=== PATIENT | female | born 1980 | race African-American/Black ===

== ENCOUNTER 2018-08-13 18:36 | Emergency (ER) | payer BC, OTHER ==
[~2018-08-13] VITALS: Ht 165.1 cm; Wt 63.5 kg
[~2018-08-13 18:36] MED LIST: FLAGYL500 MG ORAL; GYNE-LOTRIMIN45 GM VG; IBUPROFEN600 MG ORAL; LEVOTHYROXINE88 MCG ORAL; NAPROXEN375 MG PO; NORCO 5-325 TA1 EACH ORAL; TRAMADOL HCL50 MG ORAL; UNOBMED; VIBRAMYCIN100 MG ORAL
[2018-08-13 19:21] VITALS: BP 119/79
--- NOTE | 2018-08-13 19:21 | NUR ---
ED Nurse Note: Patient comes in with complaints of right breast pain, 8/10 on pain scale for 1 day.
--- NOTE | 2018-08-13 19:53 | Emergency Room Report ---
History of Present Illness General Chief Complaint: Pain Source: Patient Present Illness HPI 38-year-old female presents to the emergency department complaining of 8/10 in severity right breast pain that is localized and progressive x 1 day. Pt. also c /o 5/10 in severity to right rhomboid area pain/soreness x 2 weeks. no LAD, no constitutional symptoms. no family hx of BRCA. NO fevers, chills, nipple d/c, or dimpling of the skin over the breast. pt. reports swelling and palpable swelling inside of the breast. denies trauma or fall. denies appreciable strenuous activities . Allergies: Coded Allergies: No Known Allergies (Unverified , 07/07/12) Patient History Past Medical History: see triage record Past Surgical History: none Pertinent Family History: none Last Menstrual Period: 07/2018 Reviewed Nursing Documentation: PMH: Agreed; PSxH: Agreed Nursing Documentation-PMH Past Medical History: No History, Except For Review of Systems All Other Systems: negative except mentioned in HPI Physical Exam Vital Signs Date Time Temp Pulse Resp B/P (MAP) Pulse Ox O2 Delivery O2 Flow Rate FiO2 08/13/18 18:48 98.2 56 19 119/79 99 Room Air Sp02 EP Interpretation: reviewed, normal General Appearance: no apparent distress, alert, GCS 15, non-toxic Head: normocephalic, atraumatic Eyes: bilateral eye normal inspection, bilateral eye PERRL ENT: hearing grossly normal, normal voice Neck: full range of motion Respiratory: lungs clear, normal breath sounds, speaking full sentences, other - right breast tissue, mild erythema and swelling. Cardiovascular #1: regular rate, rhythm Rectal: deferred Genitourinary: normal inspection Musculoskeletal: back normal, gait/station normal, normal range of motion, tender - TTP to the right rhomboid, some swelling also noted, Neurologic: alert, oriented x3, responsive, motor strength/tone normal, sensory intact, normal gait, speech normal, grossly normal Psychiatric: judgement/insight normal Skin: no rash, warm/dry, well hydrated, other - right breast tissue, mild erythema and swelling. Lymphatic: no adenopathy Medical Decision Making PA Attestation Dr. wilkerson is my supervising Physician whom patient management has been discussed with. Diagnostic Impression: Primary Impression: Mastitis of right breast unrelated to of Additional Impression: Muscle strain ER Course 38-year-old female presents to the emergency department complaining of 8/10 in severity right breast pain that is localized and progressive x 1 day. Pt. also c /o 5/10 in severity to right rhomboid area pain/soreness x 2 weeks. no LAD, no constitutional symptoms. no family hx of BRCA. NO fevers, chills, nipple d/c, or dimpling of the skin over the breast. pt. reports swelling and palpable swelling inside of the breast. denies trauma or fall. denies appreciable strenuous activities . Ddx considered but are not limited to cellulitis, abscess, mastitis, shingles, malignancy just to name a few. Vital signs: are WNL, pt. is afebrile H&PE are most consistent with possible mastitis vs. cellulitis of the right breast tissue, mild erythema and swelling. TTP to the right rhomboid, some swelling also noted, ORDERS: none required at this time, the diagnosis is clinical ED INTERVENTIONS: None required at this time. DISCHARGE: At this time pt. is stable for d/c to home. Will provide printed patient care instructions, and any necessary prescriptions. Care plan and follow up instructions have been discussed with the patient prior to discharge. Last Vital Signs Date Time Temp Pulse Resp B/P (MAP) Pulse Ox O2 Delivery O2 Flow Rate FiO2 08/13/18 19:21 98.2 78 19 119/79 99 Room Air Status: improved Disposition: HOME, SELF-CARE Condition: Stable Scripts Methocarbamol* (ROBAXIN-750*) 750 Mg Tablet 750 MG PO QID for 7 Days, #28 TAB 0 Refills Prov: Prudence Meneses 08/13/18 Ibuprofen* (MOTRIN*) 600 Mg Tablet 600 MG ORAL THREE TIMES A DAY, #30 TAB 0 Refills Prov: Prudence Meneses 08/13/18 Dicloxacillin Sodium (Dicloxacillin Sodium) 500 Mg Capsule 500 MG ORAL Q12HR for 7 Days, #14 CAP 0 Refills Prov: Prudence eMneses 08/13/18 Patient Instructions: Breast Tenderness, Muscle Strain, [id number] Additional Instructions: Take medications as directed. Follow up with a INTERNATIONAL ACCOUNT MANAGER within 3 days, even if your symptoms have resolved. * * Return sooner to ED if new symptoms occur, or current symptoms become worse. - Please note that this Emergency Department Report was dictated using [employer] crewman technology software, occasionally this can lead to erroneous entry secondary to interpretation by the dictation equipment. Prudence Meneses Aug 13, 2018 19:53
[2018-08-13] MEDS ORDERED: DICLOXACILLIN500 MG ORAL (19:55)
[2018-08-13] MEDS ORDERED: IBUPROFEN600 MG ORAL (19:55)
[2018-08-13] MEDS ORDERED: ROBAXIN-750750 MG PO (19:55)
[2018-08-13 20:16] VITALS: BP 119/79
--- NOTE | 2018-08-13 20:16 | NUR ---
ED Nurse Note: Patient cleared for discharge, no s/s of acute distress. Patient ambulatory with steady gait, ID band removed. Patient verbalized understanding of discharge instructions.
== END 2018-08-13 20:16 | disposition home or self-care (01) ==
LOC: EMR 19:25
DX: N61.0 Mastitis without abscess (principal); S29.012A Strain of muscle and tendon of back wall of thorax, initial encounter; X58.XXXA Exposure to other specified factors, initial encounter; Y92.9 Unspecified place or not applicable
CPT/HCPCS: 99283

== ENCOUNTER 2020-07-18 08:39 | Emergency (ER) | payer BC, OTHER ==
[~2020-07-18] VITALS: Ht 165.1 cm; Wt 66.2 kg
[~2020-07-18 08:39] MED LIST changes: +DICLOXACILLIN500 MG ORAL; +ROBAXIN-750750 MG PO
--- NOTE | 2020-07-18 09:28 | Emergency Room Report ---
History of Present Illness General Chief Complaint: Abdominal Pain Source: Patient Present Illness HPI Patient has a history of appendectomy and prior hernia repair. She presents to the emergency department today complaining of acute onset of suprapubic and right lower quadrant discomfort radiating into her kidney area for the last 3 days. She complains of dysuria urinary frequency. She denies an y fever nausea vomiting diarrhea or chills. Denies any chest pain shortness of breath. Denies any vaginal discharge. States that she has a history of ovarian cysts but was told that it was very small and this was some time ago. No other modifying factors. No other associated signs and symptoms. No other complaints were noted. Allergies: Coded Allergies: No Known Allergies (Unverified , 07/07/12) COVID-19 Screening Contact w/high risk pt: No Recent Travel to affected area: No Experienced COVID-19 symptoms?: No COVID-19 Testing performed STONE GLUER: Yes COVID-19 Screening: Negative COVID-19 COVID-19 Testing Source: care Patient History Past Medical History: none Past Surgical History: appy, , other - Hernia repair Pertinent Family History: none Social History: Denies: smoking, alcohol use, drug use Last Menstrual Period: 07/06/20. Now: No Reviewed Nursing Documentation: PMH: Agreed; PSxH: Agreed Review of Systems All Other Systems: negative except mentioned in HPI Physical Exam Vital Signs Date Time Temp Pulse Resp B/P (MAP) Pulse Ox O2 Delivery O2 Flow Rate FiO2 07/18/20 09:01 98.2 53 17 121/76 (91) 100 Room Air Sp02 EP Interpretation: reviewed, normal General Appearance: normal inspection, well appearing, no apparent distress, alert Head: atraumatic Eyes: bilateral eye normal inspection ENT: normal ENT inspection, hearing grossly normal, normal voice Neck: normal inspection, full range of motion, supple, no bony tend Respiratory: normal inspection, lungs clear, normal breath sounds, no respiratory distress, no retraction, no wheezing Cardiovascular #1: regular rate, rhythm, no edema Gastrointestinal: normal inspection, normal bowel sounds, non tender, soft, no guarding, no hernia Genitourinary: no CVA tenderness Musculoskeletal: normal inspection, back normal, normal range of motion Neurologic: alert, responsive, speech normal, normal inspection Psychiatric: normal inspection, judgement/insight normal, mood/affect normal Skin: no rash Medical Decision Making Diagnostic Impression: Primary Impression: UTI (urinary tract infection) Additional Impression: Suprapubic pain ER Course Patient presents emergency department today complaining dysuria. Differential diagnoses include, urinary tract infection, bladder irritation, bladder spasms, pyelonephritis, colitis just to name a few. Patient exam is consistent with a UTI. Patient's urine was positive for UTI. Pt was given a prescription for antibiotics.Patient is advised to follow up with primary doctor in 2-3 days and return the emergency room for any worsening symptoms and as needed. Patient's laboratory work-up was not impressive. Labs Test 07/18/20 09:14 White Blood Count 6.6 K/UL (4.8-10.8) Red Blood Count 4.57 M/UL (4.20-5.40) Hemoglobin 13.4 G/DL (12.0-16.0) Hematocrit 41.0 % (37.0-47.0) Mean Corpuscular Volume 90 FL (80-99) Mean Corpuscular Hemoglobin 29.3 PG (27.0-31.0) Mean Corpuscular Hemoglobin Concent 32.7 G/DL (32.0-36.0) Red Cell Distribution Width 12.4 % (11.6-14.8) Platelet Count 209 K/UL (150-450) Mean Platelet Volume 9.3 FL (6.5-10.1) Neutrophils (%) (Auto) 69.4 % (45.0-75.0) Lymphocytes (%) (Auto) 21.4 % (20.0-45.0) Monocytes (%) (Auto) 7.6 % (1.0-10.0) Eosinophils (%) (Auto) 0.8 % (0.0-3.0) Basophils (%) (Auto) 0.9 % (0.0-2.0) Urine Color Pale yellow Urine Appearance Slightly cloudy Urine pH 5 (4.5-8.0) Urine Specific [place] 1.025 (1.005-1.035) Urine Protein 1+ (NEGATIVE) Urine Glucose (UA) Negative (NEGATIVE) Urine Ketones 1+ (NEGATIVE) Urine Blood 2+ (NEGATIVE) Urine Nitrite Negative (NEGATIVE) Urine Bilirubin Negative (NEGATIVE) Urine Urobilinogen Normal MG/DL (0.0-1.0) Urine Leukocyte Esterase 2+ (NEGATIVE) Urine RBC 0-2 /HPF (0 - 2) Urine WBC 5-10 /HPF (0 - 2) Urine Squamous Epithelial Cells Moderate /LPF (NONE/OCC) Urine Bacteria Moderate /HPF (NONE) Urine Mucus Few /LPF (NONE/OCC) Urine HCG, Qualitative Negative (NEGATIVE) Sodium Level 142 MMOL/L (136-145) Potassium Level 4.1 MMOL/L (3.5-5.1) Chloride Level 107 MMOL/L (98-107) Carbon Dioxide Level 27 MMOL/L (21-32) Anion Gap 8 mmol/L (5-15) Blood Urea Nitrogen 12 mg/dL (7-18) Creatinine 0.8 MG/DL (0.55-1.30) Estimat Glomerular Filtration Rate > 60 mL/min (>60) Glucose Level 92 MG/DL (74-106) Calcium Level 8.4 MG/DL (8.5-10.1) Total Bilirubin 0.6 MG/DL (0.2-1.0) Aspartate Amino Transf (AST/SGOT) 25 U/L (15-37) Alanine Aminotransferase (ALT/SGPT) 12 U/L (12-78) Alkaline Phosphatase 65 U/L (46-116) Total Protein 8.2 G/DL (6.4-8.2) Albumin 3.8 G/DL (3.4-5.0) Globulin 4.4 g/dL Albumin/Globulin Ratio 0.9 (1.0-2.7) Lipase 100 U/L (73-393) Last Vital Signs Date Time Temp Pulse Resp B/P (MAP) Pulse Ox O2 Delivery O2 Flow Rate FiO2 07/18/20 09:01 98.2 53 17 121/76 (91) 100 Room Air Status: improved Disposition: HOME, SELF-CARE Condition: Stable Scripts Cephalexin* (KEFLEX*) 500 Mg Capsule 500 MG ORAL EVERY 6 HOURS for 7 Days, CAP Prov: Osman Quijano MD 07/18/20 Osman Quijano MD Jul 18, 2020 09:28
[2020-07-18 09:37] LABS: APPEARANCE,URINE SLIGHTLY CLOUDY; BASOPHILS % (AUTO) 0.9 % (0.0-2.0); BILIRUBIN, URINE NEGATIVE (NEGATIVE); EOSINOPHILS % (AUTO) 0.8 % (0.0-3.0); GLUCOSE, URINE (UA) NEGATIVE (NEGATIVE); HEMOGLOBIN 13.4 G/DL (12.0-16.0); KETONES,URINE 1+ (NEGATIVE); LEUKOCYTE ESTERASE ,URINE 2+ (NEGATIVE); LYMPHOCYTES % (AUTO) 21.4 % (20.0-45.0); MEAN CORPUSCULAR VOLUME 90 FL (80-99); MONOCYTES % (AUTO) 7.6 % (1.0-10.0); NEUTROPHILS % (AUTO) 69.4 % (45.0-75.0); NITRITE,URINE NEGATIVE (NEGATIVE); PH,URINE 5 (4.5-8.0); PLATELET COUNT 209 K/UL (150-450); PROTEIN,URINE 1+ (NEGATIVE); RED BLOOD COUNT 4.57 M/UL (4.20-5.40); RED CELL DISTRIBUTION WIDTH 12.4 % (11.6-14.8); UROBILINOGEN,URINE NORMAL MG/DL (0.0-1.0); WHITE BLOOD COUNT 6.6 K/UL (4.8-10.8)
[2020-07-18 09:40] LABS: COLOR,URINE PALE YELLOW
[2020-07-18 09:50] VITALS: BP 121/76
[2020-07-18 09:53] LABS: ANION GAP 8 mmol/L (5-15); BLOOD UREA NITROGEN 12 mg/dL (7-18); CALCIUM 8.4 MG/DL (8.5-10.1); CARBON DIOXIDE 27 MMOL/L (21-32); CHLORIDE 107 MMOL/L (98-107); CREATININE 0.8 MG/DL (0.55-1.30); POTASSIUM 4.1 MMOL/L (3.5-5.1); SODIUM 142 MMOL/L (136-145)
[2020-07-18 09:57] LABS: ALANINE AMINOTRANSFERASE 12 U/L (12-78); ALBUMIN 3.8 G/DL (3.4-5.0); ALBUMIN/GLOBULIN RATIO 0.9 (1.0-2.7); ALKALINE PHOSPHATASE 65 U/L (46-116); ASPARTATE AMINO TRANSFERASE 25 U/L (15-37); BILIRUBIN,TOTAL 0.6 MG/DL (0.2-1.0)
[2020-07-18] MEDS ORDERED: CEPHALEXIN500 MG ORAL (10:08)
[2020-07-18 10:40] VITALS: BP 120/78
== END 2020-07-18 10:56 | disposition home or self-care (01) ==
LOC: EMR 09:40
DX: N39.0 Urinary tract infection, site not specified (principal); R10.2 Pelvic and perineal pain; Z90.89 Acquired absence of other organs
CPT/HCPCS: 36415; 80053; 81003; 81025; 83690; 85025; 87086; Z7502; 99284